=== PATIENT | female | born 1975 | race African-American/Black ===

== ENCOUNTER 2019-08-22 18:17 | Observation (INO) ==
[2019-08-22] MEDS ORDERED: ONDANSETRON 4 MG/2 ML VIAL IV STA (21:27)
[2019-08-22] MEDS ORDERED: SODIUM CHLORIDE 0.9% 1,000 ML IV STA (21:27)
[2019-08-22] MEDS ORDERED: PANTOPRAZOLE 40 MG VIAL IV STA (21:27)
[2019-08-22] MEDS ORDERED: HYDROmorphone 2 MG/1 ML VIAL IV STA (21:27)
[2019-08-22 22:18] LABS: Hematocrit 35.5 VOL% (35.7-47.0); Hemoglobin 11.7 GM/DL (12.0-16.0); Immature Granulocytes % 9.6 %; Immature Granulocytes Absolute 6.44 #; Lymphocytes # 1.6 10*3/uL (1.4-4.0); Lymphocytes % 2.4 % (21.3-54.2); Mean Corpuscular Volume 89.2 FL (87-102); Mean Platelet Volume 10.3 FL (9.6-12.0); Monocytes % 1.2 % (1.7-12.7); Neutrophils % 86.8 % (38.7-73.9); Platelet Count 171 T/CUMM (130-400); Red Blood Count 3.98 MC/CUMM (3.8-5.5); Red Cell Distribution Width 17.2 % (9.3-17.3)
[2019-08-22 22:25] LABS: White Blood Count 67.1 T/CUMM (4-12)
[2019-08-22 22:37] LABS: Alanine Aminotransferase 15 U/L (13-56); Albumin 3.4 G/DL (3.4-5.0); Alkaline Phosphatase 112 U/L (45-117); Amylase 51 U/L (25-115); Aspartate Amino Transferase 17 U/L (0-37); Bilirubin,Total < 0.39 MG/DL (0.2-1.0); Blood Urea Nitrogen 8 MG/DL (7-18); Calcium 9.3 MG/DL (8.5-10.1); Estimated Glom Filtration Rate 132 ML/MIN; Glucose 85 MG/DL (74-106); Osmolality,Calculated 277.3 MOS/KG (273-304); Total Protein 7.9 G/DL (6.4-8.3)
[2019-08-22 22:44] LABS: Band Neutrophils 4 % (0-10); Hypochromasia Slight; Lymphocytes 4 % (20-55); Platelet Estimate Normal; Segmented Neutrophils 89 % (50-85); Total Cells Counted 100
[2019-08-22] MEDS ORDERED: PROMETHAZINE 25 MG/1 ML VIAL ONE (23:05)
[2019-08-22] MEDS ORDERED: PROMETHAZINE 25 MG/1 ML VIAL IM STA (23:14)
[2019-08-22] MEDS ORDERED: DEXAMETHASONE 4 MG/1 ML VIAL IV STA (23:18)
[2019-08-23 01:43] LABS: Apearance,Urine Slightly Hazy (Clear); Bacteria,Urine Occasional /HPF (Few); Bilirubin,Urine Negative (Negative); Blood, Urine Small mg/dL (Negative); Glucose,Urine (UA) Negative (Negative); Ketones,Urine Negative (Negative); Mucus,Urine Occasional /LPF (Occasional); Nitrite,Urine Negative (Negative); Protein,Urine Negative; RBC,Urine 5 /HPF (0-4); Squamous Epithelial Cell,Urine Occasional /HPF (0-10); Urine Color Yellow (Yellow); Urine Specific Gravity 1.019 (1.001-1.035); Urine Urobilinogen < 2.0 EU/DL (0.2-1.0); WBC,Urine 5 /HPF (0-6)
[2019-08-23] MEDS ORDERED: diphenhydrAMINE CAP 25 MG CAPSULE PO PRN (02:30)
[2019-08-23] MEDS: SODIUM CHLORIDE 0.9% 1,000 ML IV SCH ×2 (03:20→12:59)
[2019-08-23] MEDS ORDERED: ONDANSETRON 4 MG/2 ML VIAL IV PRN (03:30)
[2019-08-23] MEDS ORDERED: PROMETHAZINE INJ 25 MG in SODIUM CHLORIDE 0.9% 50 ML IV PRN (03:30)
[2019-08-23 04:47] LABS: Hematocrit 33.6 VOL% (35.7-47.0); Hemoglobin 10.9 GM/DL (12.0-16.0); Immature Granulocytes % 11.9 %; Immature Granulocytes Absolute 7.36 #; Lymphocytes % 1.6 % (21.3-54.2); Mean Corpuscular HGB Conc 32.4 GM/DL (32-36); Mean Corpuscular Volume 90.3 FL (87-102); Mean Platelet Volume 10.4 FL (9.6-12.0); Neutrophils % 85.5 % (38.7-73.9); Platelet Count 156 T/CUMM (130-400); Red Blood Count 3.72 MC/CUMM (3.8-5.5); Red Cell Distribution Width 17.3 % (9.3-17.3)
[2019-08-23 04:56] LABS: White Blood Count 61.7 T/CUMM (4-12)
[2019-08-23 04:59] LABS: Calcium 8.7 MG/DL (8.5-10.1); Osmolality,Calculated 279.3 MOS/KG (273-304)
[2019-08-23 05:12] LABS: Lymphocytes 3 % (20-55); Segmented Neutrophils 96 % (50-85); Total Cells Counted 100
[2019-08-23 05:13] LABS: Hypochromasia 1+; Platelet Estimate Normal; Polychromasia Few
[2019-08-23] MEDS ORDERED: OLANZapine 5 MG TABLET PO SCH ×3 (09:00→21:00)
[2019-08-23] MEDS: PANTOPRAZOLE 40 MG TABLET PO SCH (09:49)
[2019-08-23] MEDS: ENOXAPARIN 40 MG/0.4 ML SYRINGE SUBCUT SCH (09:49)
[2019-08-23] MEDS: DEXAMETHASONE 4 MG/1 ML VIAL IV SCH ×3 (10:36→21:40)
[2019-08-24] MEDS: SODIUM CHLORIDE 0.9% 1,000 ML IV SCH ×2 (01:41→10:12)
[2019-08-24 05:25] LABS: Hematocrit 30.4 VOL% (35.7-47.0); Hemoglobin 9.9 GM/DL (12.0-16.0); Immature Granulocytes % 21.9 %; Immature Granulocytes Absolute 10.72 #; Lymphocytes # 0.6 10*3/uL (1.4-4.0); Lymphocytes % 1.3 % (21.3-54.2); Mean Corpuscular HGB Conc 32.6 GM/DL (32-36); Mean Corpuscular Volume 89.7 FL (87-102); Mean Platelet Volume 11.2 FL (9.6-12.0); Monocytes % 0.4 % (1.7-12.7); Neutrophils % 76.4 % (38.7-73.9); Platelet Count 156 T/CUMM (130-400); Red Blood Count 3.39 MC/CUMM (3.8-5.5); Red Cell Distribution Width 17.2 % (9.3-17.3)
[2019-08-24 05:35] LABS: White Blood Count 49.1 T/CUMM (4-12)
[2019-08-24 05:45] LABS: Calcium 8.5 MG/DL (8.5-10.1); Osmolality,Calculated 281.1 MOS/KG (273-304)
[2019-08-24] MEDS: DEXAMETHASONE 4 MG/1 ML VIAL IV SCH ×2 (05:57→10:51)
[2019-08-24 06:11] LABS: Lymphocytes 2 % (20-55); Segmented Neutrophils 98 % (50-85); Total Cells Counted 100
[2019-08-24 06:12] LABS: Anisocytosis 1+; Microcytosis Slight; Platelet Estimate Normal
[2019-08-24] MEDS: PANTOPRAZOLE 40 MG TABLET PO SCH (09:27)
[2019-08-24] MEDS: ENOXAPARIN 40 MG/0.4 ML SYRINGE SUBCUT SCH (09:27)
[2019-08-24 11:59] VITALS: BP 132/76
== END 2019-08-24 15:20 | disposition home or self-care (01) ==
LOC: N.ED 18:17 → N.EDINP 18:17 → N.4E 08-23 02:09
PROVIDERS: ADMIT Internal Medicine; ATTEND Internal Medicine